=== PATIENT | male | born 1950 | race Caucasian/White ===

== ENCOUNTER 2024-03-09 13:18 | Inpatient (IN) | payer MEDICARE, BC, SELFPAY ==
[2024-03-07] VITALS (13 sets, daily range): BP systolic 102–189; BP diastolic 62–91; BMI 28.4
[2024-03-07 11:51] LABS: % Basophils 0.8 % (0-2); % Eosinophils 0.7 % (0-6); % Immature Granulocytes 0.5 % (0-0.5); % Lymphocytes 18.3 % (20.5-51.1); % Monocytes 7.3 % (1.7-9.3); % Neutrophils 72.4 % (42.2-75.2); Absolute Basophils 0.1 10^3/uL (0-0.2); Absolute Eosinophils 0.1 10^3/uL (0-0.7); Absolute Lymphocytes 1.4 10^3/uL (1.2-3.4); Absolute Monocytes 0.6 10^3/uL (0.1-0.6); Absolute Neutrophils 5.5 10^3/uL (1.4-6.5); Hematocrit 39.2 % (39.0-52.0); Hemoglobin 14.1 g/dL (13.0-18.0); Mean Corpuscular Hgb 31.4 pg (27.0-31.0); Mean Corpuscular Volume 87.3 fL (80.0-94.0); Mean Platelet Volume 9.8 fL (7.4-10.4); Nucleated Red Blood Cells % 0 % (-); Platelet Count 285 10^3/uL (130-400); Red Blood Cell Count 4.49 10^6/uL (4.70-6.10); Red Cell Dist. Width 12.1 % (11.5-14.5); White Blood Cell Count 7.6 10^3/uL (4.8-10.8)
[2024-03-07 12:08] LABS: ALT (SGPT) 19 U/L (0-50); AST (SGOT) 29 U/L (17-59); Albumin 4.3 g/dl (3.5-5.0); Alkaline Phosphatase 57 U/L (38-126); Blood Urea Nitrogen 12 mg/dl (9-20); Calcium 10.6 mg/dl (8.4-10.2); Carbon Dioxide 28 mmol/L (22-30); Chloride 92 mmol/L (98-107); Estimated Creatinine Clearance 60 ml/min; Glucose 93 mg/dl (70-99); Sodium 129 mmol/L (135-145); Total Protein 7.3 g/dl (6.3-8.2); eGFR > 60.00
[2024-03-07 12:16] LABS: Troponin I < 0.012 ng/ml
[2024-03-07 13:46] LABS: Urine Albumin Negative (Neg - Trace); Urine Bilirubin Negative (Negative); Urine Character Clear (Clear); Urine Color Yellow; Urine Glucose Negative (Negative); Urine Ketone 2+ (Negative); Urine Leukocyte Negative (Negative); Urine Nitrite Negative (Negative); Urine Occult Blood 3+ (Negative); Urine Urobilinogen Negative (Neg - 1+)
[2024-03-07 14:36] LABS: Urine Amorphous Seen; Urine Granular Cast 0-2 /LPF (0); Urine Mucus Few; Urine Squamous Cell 0-2 /LPF (Few)
[2024-03-07 14:37] LABS: Urine Epithelial Cast 0-2 /LPF; Urine White Cell 0-2 /HPF (0-5)
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
[2024-03-07] MEDS: SODIUM CHLORIDE 3% 250 IV (18:43)
--- NOTE | 2024-03-07 21:00 | EDRN ---
Report received, patient went to xray and came back, pulled up in bed and repositioned for comfort, call stephens in reach, no further complaints, will continue to monitor
[2024-03-07] MEDS: LOVENOX 40 MG SC (22:33)
--- NOTE | 2024-03-07 22:37 | EDRN ---
Patient ambulated to the restroom, was able to ambulate without difficulty and back in bed resting comfortably, call stephens in reach, showed how to use it again, patient asking about his room, informed him we probably wont get one until tomorrow,
lights turned down and patient resting comfortably.
[2024-03-07 22:43] LABS: Osmolality Urine 187 mOsm/kg (300-900)
[2024-03-07 23:03] LABS: Troponin I < 0.012 ng/ml
[2024-03-07 23:19] LABS: Urine Sodium 32 mmol/L (30-90)
[2024-03-08] VITALS (19 sets, daily range): BP systolic 66–184; BP diastolic 47–100; PULSE 68–81; BMI 27.3
[2024-03-08 05:20] LABS: Hematocrit 41.8 % (39.0-52.0); Hemoglobin 14.8 g/dL (13.0-18.0); Mean Corp Hgb Conc. 35.4 g/dL (33.0-37.0); Mean Corpuscular Hgb 31.9 pg (27.0-31.0); Mean Corpuscular Volume 90.1 fL (80.0-94.0); Mean Platelet Volume 9.9 fL (7.4-10.4); Platelet Count 264 10^3/uL (130-400); Red Blood Cell Count 4.64 10^6/uL (4.70-6.10); White Blood Cell Count 7.8 10^3/uL (4.8-10.8)
[2024-03-08 05:30] LABS: Blood Urea Nitrogen 10 mg/dl (9-20); Calcium 9.4 mg/dl (8.4-10.2); Carbon Dioxide 22 mmol/L (22-30); Chloride 101 mmol/L (98-107); Estimated Creatinine Clearance 86 ml/min; Glucose 86 mg/dl (70-99); Magnesium 2.1 mg/dl (1.6-2.3); Potassium 4.3 mmol/L (3.5-5.1); Sodium 133 mmol/L (135-145); eGFR > 60.00
[2024-03-08 05:40] LABS: Troponin I < 0.012 ng/ml
[2024-03-08 06:25] LABS: Vitamin B12 634 pg/ml (239-931)
[2024-03-08] MEDS: THERAGRAN 1 TABLET PO (09:57)
[2024-03-08] MEDS: PROTONIX 40 MG PO (09:57)
--- NOTE | 2024-03-08 10:36 | W.PN.NEPH.PH ---
Today's Communication / Plan
-
check cortisol
Assessment/Plan
-
Assessment:
Hyponatremia
Hypertension
Hypercalcemia
Reflux
Hypothyroidism
Unsteady gait
Plan:
no hypertonic IVF
check cortisol/FT4
TEDs
follow BMP
no lasix
continue FR
-
-
Date of Service: March 08, 2024
CC / HPI / ROS
-
Chief Complaint:
hyponatremia
History of Present Illness:
orthostatic severely
Na up to 133
TSH elevated
calcium normalized
Review of Systems:
no CP/SOB
Labs
-
Labs:
WBC 7.8 10^3/uL (4.8-10.8) 03/08/24 05:03
RBC 4.64 10^6/uL (4.70-6.10) L 03/08/24 05:03
Hgb 14.8 g/dL (13.0-18.0) 03/08/24 05:03
Hct 41.8 % (39.0-52.0) 03/08/24 05:03
Plt Count 264 10^3/uL (130-400) 03/08/24 05:03
Sodium 133 mmol/L (135-145) L 03/08/24 05:03
Potassium 4.3 mmol/L (3.5-5.1) 03/08/24 05:03
Chloride 101 mmol/L (98-107) 03/08/24 05:03
Carbon Dioxide 22 mmol/L (22-30) 03/08/24 05:03
BUN 10 mg/dl (9-20) 03/08/24 05:03
Creatinine 0.7 mg/dL (0.7-1.3) 03/08/24 05:03
eGFR > 60.00 03/08/24 05:03
Glucose 86 mg/dl (70-99) 03/08/24 05:03
Calcium 9.4 mg/dl (8.4-10.2) 03/08/24 05:03
Albumin 4.3 g/dl (3.5-5.0) 03/07/24 11:44
Physical Exam
-
Vital Signs:
Vital Signs
Temp Pulse Resp BP Pulse Ox
97.8 F 84 14 161/87 99
03/08/24 08:00 03/08/24 09:30 03/08/24 09:30 03/08/24 09:25 03/08/24 09:30
Cardiovascular:: Regular rate and rhythm
Respiratory:: Bilateral: Coarse
Lung Excursion:: Normal
Abdomen:: Nontender and Soft
Bowel Sounds:: Normal
Extremity Edema:: +1: Bilateral:
[2024-03-08 11:26] LABS: Free T4 1.45 ng/dl (0.78-2.19)
[2024-03-08 11:40] LABS: Cortisol, Random 14.2 ug/dl
[2024-03-08] MEDS: SENOKOT-S 1 TABLET PO (16:52)
--- NOTE | 2024-03-08 17:26 | W.PN.HOSP.TC ---
Today's Communication/Plan
-
Severe orthostatic hypotension
Fahad Stockings and Abdominal Binder when getting out of bed
May need increased blood pressure control/medicine for supine hypertension
PT/OT
Assessment / Plan
Assessment / Plan
Physical Exam
General: No Apparent Distress and Comfortable
HEENT: Normocephalic and Moist mucous membranes
Respiratory: Clear
Cardiac: S1/S2 and Regular Rhythm
GI: Soft, Non Tender and Normal Bowel Sounds
Musculoskeletal: No Cyanosis and No Edema
Skin: Warm and Dry
Neuro: Awake, Alert, AO x 3, No Motor Deficits and Nonfocal/grossly intact
Psych: Calm and Intact Judgment/Insight

MRI Brain (as per radiologist's report):
IMPRESSION:
1. No MRI evidence for acute infarct.
2. Mild to moderate white matter leukoaraiosis in the frontal and parietal lobes.
3. Mild diffuse cerebral and cerebellar volume loss.
4. Hypoplastic right intracranial vertebral artery.
5. Small multilevel disc herniations in the cervical spine causing mild spinal cord compression and central canal stenosis.

Assessment/Plan
Presentation with a 3-day history of ataxia, dizziness
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
Significant Orthostatic Hypotension
-CT Head with no acute changes
-MRI brain with no acute stroke
-Orthostatic vital signs
-Echocardiogram noted and unremarkable
-Spoke with neurology, recommendations appreciated: treat orthostatic hypotension for now, consult if needed
-Consulted nephrology as well given patient's hyponatremia (which is new for him, per patient's )
-Monitor on telemetry
-Cortisol noted
-TSH above 10, increased Levothyroxine for 137 mcg daily
-TEDs
-Abdominal Binder
Hyponatremia
-Sodium 129 on admission
-PO fluid restriction 48 ounces daily
-Consulted nephrology, recommendations appreciated
-Received 3%
-Sodium improved
Hypothyroidism
-TSH above 10, increased Levothyroxine for 137 mcg daily
GERD
-Continue home Nexium or equivalent
Anxiety
-Stable
DVT PPx: Lovenox
Code Status: Full Code
Anticipated Discharge: 24 - 48 hours
Subjective/Interval History
-
Date of Service: March 08, 2024
Patient was seen and examined. He denied any new symptoms or any new complaints.
Objective Data
-
Labs:
Laboratory Results
03/08/24 03/08/24 03/08/24
05:03 05:03 05:03
WBC 7.8
Hgb 14.8
Hct 41.8
Plt Count 264
Sodium Cancelled 133 L
Potassium Cancelled 4.3
Chloride Cancelled
Carbon Dioxide
BUN
Creatinine
Glucose
Calcium
03/08/24 03/08/24 03/08/24
05:03 05:03 05:03
WBC
Hgb
Hct
Plt Count
Sodium
Potassium
Chloride 101
Carbon Dioxide Cancelled 22
BUN Cancelled 10
Creatinine Cancelled
Glucose
Calcium
03/08/24 03/08/24 03/08/24
05:03 05:03 05:03
WBC
Hgb
Hct
Plt Count
Sodium
Potassium
Chloride
Carbon Dioxide
BUN
Creatinine 0.7
Glucose Cancelled 86
Calcium Cancelled 9.4
Vital Signs:
Vital Signs
Temp Pulse Resp BP Pulse Ox
97.9 F 74 20 172/95 98
03/08/24 16:15 03/08/24 17:10 03/08/24 16:15 03/08/24 17:10 03/08/24 16:15
I&O
03/07/24 03/08/24 03/09/24
06:59 06:59 06:59
Intake Total 250 / 250
Output Total 500 / 500 250 / 250
Balance -250 / -250 -250 / -250
--- NOTE | 2024-03-08 17:30 | PTCARENOTE ---
Pt arrived to 412-1 at 1615 from the ED. Pt AAOx3, forgetful and CHEESH-NA- no hearing aids with pt. Pt denies any dizziness. BP elevated at time of arrival to floor at 184/100. Rechecked BP at 1710, BP 172/95. Pt remains asymptomatic. Made "Eric"Lakeshia aware of elevated BP. No change in meds at this time. See shift assessment for further detail. Oriented pt and his to , reporting concerns, plan of care, fall risk, medications etc- both verbalized understanding. Bed alarm in place
for pt's safety as he is forgetful.
[2024-03-08] MEDS: LOVENOX 40 MG SC (18:20)
[2024-03-09] VITALS (9 sets, daily range): BP systolic 65–168; BP diastolic 38–102; PULSE 64–90; O2SAT 99
[2024-03-09] MEDS: SYNTHROID 137 MCG PO (05:39)
[2024-03-09] MEDS: THERAGRAN 1 TABLET PO (07:41)
[2024-03-09] MEDS: PROTONIX 40 MG PO (07:41)
[2024-03-09 08:02] LABS: Hematocrit 39.8 % (39.0-52.0); Hemoglobin 14.1 g/dL (13.0-18.0); Mean Corp Hgb Conc. 35.4 g/dL (33.0-37.0); Mean Corpuscular Hgb 31.6 pg (27.0-31.0); Mean Corpuscular Volume 89.2 fL (80.0-94.0); Platelet Count 258 10^3/uL (130-400); Red Blood Cell Count 4.46 10^6/uL (4.70-6.10); Red Cell Dist. Width 12.3 % (11.5-14.5); White Blood Cell Count 8.6 10^3/uL (4.8-10.8)
[2024-03-09 08:36] LABS: Blood Urea Nitrogen 11 mg/dl (9-20); Calcium 9.5 mg/dl (8.4-10.2); Carbon Dioxide 26 mmol/L (22-30); Chloride 99 mmol/L (98-107); Estimated Creatinine Clearance 67 ml/min; Glucose 91 mg/dl (70-99); Magnesium 2.3 mg/dl (1.6-2.3); Potassium 4.4 mmol/L (3.5-5.1); Sodium 133 mmol/L (135-145); eGFR > 60.00
--- NOTE | 2024-03-09 13:55 | CM ---
Patient seen bedside with , initial assessment completed. Patient somewhat hard of hearing. Patient resides with in a two story home, 15 steps to enter. Patient denies DME, VN, or SNF history. Patient confirms PCP Nader Bello, pharmacy
[facility], confirms prescription coverage. Patient denies food insecurities. Patient very anxious about PT recommendations, would like to return home with VN. POMPA status reviewed, refused to sign, placed in chart. Patient inquiring if he will be
switched to inpatient status, TT sent to CM. Patients inquiring about list of local PCP for herself, CM will provide. CM will watch for PT/OT evaluations for recommendations upon discharge.
Plan; will depend on PT/OT evals, patient goal is to return home with VN.
--- NOTE | 2024-03-09 15:42 | W.PN.NEPH.PH ---
Today's Communication / Plan
-
- continue fluid restriction
- nephrology to sign off
Assessment/Plan
-
Assessment:
Hyponatremia
Hypertension
Hypercalcemia
Reflux
Hypothyroidism
Unsteady gait
Plan:
no hypertonic IVF
cortisol and free T4 okay
TEDs stockings
Na now normalized to 133
no lasix, this can worsen orthostatics
continue FR
orthostatic hypotension to be managed per primary
nephrology will sign off
-
-
Date of Service: March 09, 2024
CC / HPI / ROS
-
Chief Complaint:
hyponatremia
History of Present Illness:
orthostatic severely
Na up to 133
TSH elevated
calcium normalized
Review of Systems:
no CP/SOB
Labs
-
Labs:
WBC 8.6 10^3/uL (4.8-10.8) 03/09/24 07:32
RBC 4.46 10^6/uL (4.70-6.10) L 03/09/24 07:32
Hgb 14.1 g/dL (13.0-18.0) 03/09/24 07:32
Hct 39.8 % (39.0-52.0) 03/09/24 07:32
Plt Count 258 10^3/uL (130-400) 03/09/24 07:32
Sodium 133 mmol/L (135-145) L 03/09/24 07:32
Potassium 4.4 mmol/L (3.5-5.1) 03/09/24 07:32
Chloride 99 mmol/L (98-107) 03/09/24 07:32
Carbon Dioxide 26 mmol/L (22-30) 03/09/24 07:32
BUN 11 mg/dl (9-20) 03/09/24 07:32
Creatinine 0.9 mg/dL (0.7-1.3) 03/09/24 07:32
eGFR > 60.00 03/09/24 07:32
Glucose 91 mg/dl (70-99) 03/09/24 07:32
Calcium 9.5 mg/dl (8.4-10.2) 03/09/24 07:32
Albumin 4.3 g/dl (3.5-5.0) 03/07/24 11:44
Physical Exam
-
Vital Signs:
Vital Signs
Temp Pulse Resp BP Pulse Ox
99.2 F 78 18 168/87 98
03/09/24 12:10 03/09/24 12:10 03/09/24 12:10 03/09/24 12:10 03/09/24 12:10
Cardiovascular:: Regular rate and rhythm
Respiratory:: Bilateral: Coarse
Lung Excursion:: Normal
Abdomen:: Nontender and Soft
Bowel Sounds:: Normal
Extremity Edema:: None: Bilateral:
Farris Catheter: No
[2024-03-09] MEDS: LOVENOX 40 MG SC (17:37)
--- NOTE | 2024-03-09 17:59 | W.PN.HOSP.TC ---
Today's Communication/Plan
-
Have the patient not recline flat and instead have a 20� angle when sleeping to avoid supine hypertension -- will try this and see if blood pressure on lying down improves so can trial Midodrine
Assessment / Plan
Assessment / Plan
Physical Exam
General: No Apparent Distress and Comfortable
HEENT: Normocephalic and Moist mucous membranes
Respiratory: Clear
Cardiac: S1/S2 and Regular Rhythm
GI: Soft, Non Tender and Normal Bowel Sounds
Musculoskeletal: No Cyanosis and No Edema
Skin: Warm and Dry
Neuro: Awake, Alert, AO x 3, No Motor Deficits and Nonfocal/grossly intact
Psych: Calm and Intact Judgment/Insight

MRI Brain (as per radiologist's report):
IMPRESSION:
1. No MRI evidence for acute infarct.
2. Mild to moderate white matter leukoaraiosis in the frontal and parietal lobes.
3. Mild diffuse cerebral and cerebellar volume loss.
4. Hypoplastic right intracranial vertebral artery.
5. Small multilevel disc herniations in the cervical spine causing mild spinal cord compression and central canal stenosis.

Assessment/Plan
Presentation with a 3-day history of ataxia, dizziness
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
Significant Orthostatic Hypotension
Supine Hypertension
-CT Head with no acute changes
-MRI brain with no acute stroke
-Orthostatic vital signs showed severe orthostatic hypotension
-Echocardiogram noted and unremarkable
-Spoke with neurology, recommendations appreciated: treat orthostatic hypotension for now, consult if needed
-Consulted nephrology as well given patient's hyponatremia (which is new for him, per patient's )
-Continue to monitor on telemetry
-Cortisol noted
-TSH above 10, increased Levothyroxine for 137 mcg daily
-TEDs
-Abdominal Binder
-Have the patient not recline flat and instead have a 20� angle when sleeping to avoid supine hypertension -- will try this and see if blood pressure on lying down improves so can trial Midodrine
Hyponatremia
-Sodium 129 on admission
-PO fluid restriction 48 ounces daily
-Consulted nephrology, recommendations appreciated
-Received 3%
-Sodium improved
Hypothyroidism
-TSH above 10, increased Levothyroxine for 137 mcg daily
GERD
-Continue home Nexium or equivalent
Anxiety
-Stable
DVT Prophylaxis: Lovenox
Code Status: Full Code
Anticipated Discharge: 24 - 48 hours
Subjective/Interval History
-
Date of Service: March 09, 2024
Patient was seen and examined. He denied any new symptoms or complaints.
Objective Data
-
Labs:
Laboratory Results
03/09/24
07:32
WBC 8.6
Hgb 14.1
Hct 39.8
Plt Count 258
Sodium 133 L
Potassium 4.4
Chloride 99
Carbon Dioxide 26
BUN 11
Creatinine 0.9
Glucose 91
Calcium 9.5
Vital Signs:
Vital Signs
Temp Pulse Resp BP Pulse Ox
98.8 F 72 18 148/82 98
03/09/24 15:40 03/09/24 15:40 03/09/24 15:40 03/09/24 15:40 03/09/24 15:40
I&O
03/08/24 03/09/24 03/10/24
06:59 06:59 06:59
Intake Total 250 / 250 480 / 480
Output Total 500 / 500 350 / 350
Balance -250 / -250 130 / 130
[2024-03-10] VITALS (8 sets, daily range): BP systolic 76–176; BP diastolic 48–88; PULSE 71–81
[2024-03-10] MEDS: SYNTHROID 137 MCG PO (05:07)
[2024-03-10 08:08] LABS: Hemoglobin 14.3 g/dL (13.0-18.0); Mean Corp Hgb Conc. 34.9 g/dL (33.0-37.0); Mean Corpuscular Hgb 31.8 pg (27.0-31.0); Mean Corpuscular Volume 91.1 fL (80.0-94.0); Platelet Count 257 10^3/uL (130-400); Red Cell Dist. Width 12.2 % (11.5-14.5); White Blood Cell Count 8.6 10^3/uL (4.8-10.8)
[2024-03-10 08:23] LABS: Blood Urea Nitrogen 12 mg/dl (9-20); Calcium 9.8 mg/dl (8.4-10.2); Carbon Dioxide 26 mmol/L (22-30); Chloride 97 mmol/L (98-107); Estimated Creatinine Clearance 75 ml/min; Glucose 94 mg/dl (70-99); Potassium 4.4 mmol/L (3.5-5.1); Sodium 133 mmol/L (135-145); eGFR > 60.00
[2024-03-10] MEDS: PROTONIX 40 MG PO (09:44)
[2024-03-10] MEDS: THERAGRAN 1 TABLET PO (09:44)
--- NOTE | 2024-03-10 12:29 | CM ---
Patient seen bedside with , discussed PT recommendations of acute rehab vs [facility]. Patient and would like to return home with [facility]N, TT sent to [facility] with referral. Patient is not agreeable to rehab at this time. CM will continue to follow for
all discharge planning needs.
Plan; home with [facility] pending acceptance.
--- NOTE | 2024-03-10 14:51 | VNURNOTE ---
Home Health Liaison met with patient and Terri at 1300 to discuss [facility] nurse/therapy, visits, schedule and homebound status. Patient is agreeable and understands that visits at home will be 2-3 x per week to assess and teach medical management.
[facility] contact information provided. Patient is aware that [facility] will contact them for start of care in 1-2 days after discharge from .
[facility] referral completed in [facility].
--- NOTE | 2024-03-10 15:46 | W.PN.HOSP.TC ---
Today's Communication/Plan
-
Patient still very orthostatic and still with significant supine hypertension
Consulted cardiology, appreciate recommendations
Assessment / Plan
Assessment / Plan
Physical Exam
General: No Apparent Distress and Comfortable
HEENT: Normocephalic and Moist mucous membranes
Respiratory: Clear
Cardiac: S1/S2 and Regular Rhythm
GI: Soft, Non Tender and Normal Bowel Sounds
Musculoskeletal: No Cyanosis and No Edema
Skin: Warm and Dry
Neuro: Awake, Alert, AO x 3, No Motor Deficits and Nonfocal/grossly intact
Psych: Calm and Intact Judgment/Insight

MRI Brain (as per radiologist's report):
IMPRESSION:
1. No MRI evidence for acute infarct.
2. Mild to moderate white matter leukoaraiosis in the frontal and parietal lobes.
3. Mild diffuse cerebral and cerebellar volume loss.
4. Hypoplastic right intracranial vertebral artery.
5. Small multilevel disc herniations in the cervical spine causing mild spinal cord compression and central canal stenosis.

Assessment/Plan
Presentation with a 3-day history of ataxia, dizziness
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
Significant Orthostatic Hypotension
Supine Hypertension
-CT Head with no acute changes
-MRI brain with no acute stroke
-Orthostatic vital signs continues to show severe orthostatic hypotension
-Echocardiogram noted and unremarkable
-Spoke with neurology, recommendations appreciated: treat orthostatic hypotension for now, consult if needed --> otherwise outpatient follow-up
-Consulted nephrology as well given patient's hyponatremia (which is new for him, per patient's )
-Continue to monitor on telemetry
-Cortisol noted
-TSH above 10, increased Levothyroxine to 125 mcg daily (overall increase from home dose)
-TEDs
-Abdominal Binder
-Had the patient not recline flat and instead have a 20� angle when sleeping to avoid supine hypertension -- however still with high blood pressures lying down
-Consulted cardiology, recommendations appreciated
Hyponatremia
-Sodium 129 on admission
-PO fluid restriction 48 ounces daily
-Consulted nephrology, recommendations appreciated
-Received 3%
-Sodium improved
Hypothyroidism
-TSH above 10, increased Levothyroxine to 125 mcg daily
GERD
-Continue home Nexium or equivalent
Anxiety
-Stable
DVT Prophylaxis: Lovenox
Code Status: Full Code
Anticipated Discharge: > 48 hours
Subjective/Interval History
-
Date of Service: March 10, 2024
Patient was seen and examined. He denied any new symptoms, still dizzy when getting up.
Objective Data
-
Labs:
Laboratory Results
03/10/24
07:25
WBC 8.6
Hgb 14.3
Hct 41.0
Plt Count 257
Sodium 133 L
Potassium 4.4
Chloride 97 L
Carbon Dioxide 26
BUN 12
Creatinine 0.8
Glucose 94
Calcium 9.8
Vital Signs:
Vital Signs
Temp Pulse Resp BP Pulse Ox
97.9 F 74 16 109/65 97
03/10/24 15:27 03/10/24 15:27 03/10/24 15:27 03/10/24 15:27 03/10/24 15:27
I&O
03/09/24 03/10/24 03/11/24
06:59 06:59 06:59
Intake Total 480 / 480 1260 / 1260
Output Total 350 / 350
Balance 130 / 130 1260 / 1260
--- NOTE | 2024-03-10 16:02 | W.PN.CD ---
Today's Communication / Plan
-
Impression / Plan
-
Impression: 73M admitted with ataxia. Discovered with severe orthostatic hypotension. It seems he has long history of OH and had syncope after being in hot shower and bending over/standing up quickly.
Plan:
Orthostatic hypotension - Mr. Rucker has dealt with OH for some time and describes multiple things he does to help (sit down, hydrated, etc)
- Review of records shows: cardiology visit/evaluation in 2019 for same and patient improved with knee high stockings/hydration but did not want to use fludrocortisone or exercise based lifestyle modification.
- Cardiac testing here is benign (Echo/tele)
- non neurogenic orthostatic hypotension is often reversible and due to volume depletion (seems unlikely at this point), medication (no offending meds) or severe cardiomyopathy/HF (unlikely)
- neurogenic orthostasis is due to autonomic dysfunction
- recommend lifestyle modification including:
- increase salt & water, elevate head of bed
- physical countermeasures (standing up slowly, leg crossing, etc)
- avoiding strenuous activity/dehydration/Valsalva.
- Also, abdominal binder and waist high compression stockings
- Medications
- previously declined fludrocortisone -> revisit
- midodrine during the day seems most reasonable
- Neurology evaluation for neurodegenerative disorders or neuropathy
Dispo - no cardiac contraindication to discharge
Physical Exam
Vital Signs/Labs
Vital Signs
Temp Pulse Resp BP Pulse Ox
36.6 C 74 16 109/65 97
03/10/24 15:27 03/10/24 15:27 03/10/24 15:27 03/10/24 15:27 03/10/24 15:27
03/09/24 03/10/24 03/11/24
06:59 06:59 06:59
Actual Weight 168 lb 12.8 oz
03/10/24 07:25
03/10/24 07:25
Magnesium 2.3 mg/dl (1.6-2.3) 03/09/24 07:32
TSH 14.80 uIU/ml (0.47-4.68) H 03/08/24 05:03
Free T4 1.45 ng/dl (0.78-2.19) 03/08/24 05:03
LAB Results
03/07/24 03/08/24 03/08/24
22:16 05:03 09:17
Troponin I < 0.012 < 0.012 Cancelled
03/08/24
15:17
Troponin I Cancelled
Data Reviewed
-
Date of Service: March 10, 2024
[2024-03-10] MEDS: LOVENOX 40 MG SC (18:32)
[2024-03-11 03:35] VITALS: BP 148/83
[2024-03-11] MEDS: SYNTHROID 125 MCG PO (05:28)
[2024-03-11 07:30] LABS: Hemoglobin 13.6 g/dL (13.0-18.0); Mean Corp Hgb Conc. 34.9 g/dL (33.0-37.0); Mean Corpuscular Hgb 31.3 pg (27.0-31.0); Mean Corpuscular Volume 89.7 fL (80.0-94.0); Mean Platelet Volume 9.8 fL (7.4-10.4); Platelet Count 229 10^3/uL (130-400); Red Blood Cell Count 4.35 10^6/uL (4.70-6.10); Red Cell Dist. Width 11.9 % (11.5-14.5); White Blood Cell Count 7.2 10^3/uL (4.8-10.8)
[2024-03-11 08:05] LABS: Blood Urea Nitrogen 12 mg/dl (9-20); Calcium 9.2 mg/dl (8.4-10.2); Carbon Dioxide 25 mmol/L (22-30); Chloride 98 mmol/L (98-107); Estimated Creatinine Clearance 86 ml/min; Glucose 95 mg/dl (70-99); Potassium 3.9 mmol/L (3.5-5.1); Sodium 130 mmol/L (135-145); eGFR > 60.00
[2024-03-11 08:45] VITALS: BP 143/70
[2024-03-11] MEDS: THERAGRAN 1 TABLET PO (08:59)
[2024-03-11] MEDS: PROTONIX 40 MG PO (08:59)
--- NOTE | 2024-03-11 11:18 | W.PN.HOSP.TC ---
Today's Communication/Plan
-
Discharge today
Assessment / Plan
Assessment / Plan
Physical Exam
General: No Apparent Distress and Comfortable
HEENT: Normocephalic and Moist mucous membranes
Respiratory: Clear
Cardiac: S1/S2 and Regular Rhythm
GI: Soft, Non Tender and Normal Bowel Sounds
Musculoskeletal: No Cyanosis and No Edema
Skin: Warm and Dry
Neuro: Awake, Alert, AO x 3, No Motor Deficits and Nonfocal/grossly intact
Psych: Calm and Intact Judgment/Insight

MRI Brain (as per radiologist's report):
IMPRESSION:
1. No MRI evidence for acute infarct.
2. Mild to moderate white matter leukoaraiosis in the frontal and parietal lobes.
3. Mild diffuse cerebral and cerebellar volume loss.
4. Hypoplastic right intracranial vertebral artery.
5. Small multilevel disc herniations in the cervical spine causing mild spinal cord compression and central canal stenosis.

Assessment/Plan
Presentation with a 3-day history of ataxia, dizziness
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
Significant Orthostatic Hypotension
History of Orthostatic Hypotension
Supine Hypertension
-CT Head with no acute changes
-MRI brain with no acute stroke
-Orthostatic vital signs continues to show severe orthostatic hypotension
-Echocardiogram noted and unremarkable
-Spoke with neurology, recommendations appreciated: treat orthostatic hypotension for now, consult if needed --> otherwise outpatient follow-up
-Consulted nephrology as well given patient's hyponatremia (which is new for him, per patient's )
-Continue to monitor on telemetry
-Cortisol noted
-TSH above 10, increased Levothyroxine to 125 mcg daily (overall increase from home dose)
-TEDs
-Abdominal Binder
-Consulted cardiology, recommendations appreciated
-Lifestyle changes: increase salt & water, elevate head of bed, physical countermeasures (standing up slowly, leg crossing, etc), avoid strenuous activity/dehydration/Valsalva.
-Can consider daytime Midodrine and Fludrocortisone
-Follow-up with neurology outpatient evaluation for neurodegenerative disorders or neuropathy/possible neurogenic orthostasis
Hyponatremia
-Sodium 129 on admission
-PO fluid restriction 48 ounces daily
-Consulted nephrology, recommendations appreciated
-Received 3%
-Sodium improved
Hypothyroidism
-TSH above 10, increased Levothyroxine to 125 mcg daily
GERD
-Continue home Nexium or equivalent
Anxiety
-Stable
DVT Prophylaxis: Lovenox
Code Status: Full Code
More than 30 minutes spent in discharge including
Final examination of the patient
Summarizing hospital stay
Instructions for continuing care to all relevant caregivers
Preparation of discharge records, prescriptions, and referral forms
Total time spent (in minutes): 37
Anticipated Discharge: Today
Subjective/Interval History
-
Date of Service: March 11, 2024
Patient was seen and examined. He denied any new symptoms or complaints, he said he would really like to go home today. Nurse reported that he was able to get up and walk in the hallway.
Objective Data
-
Labs:
Laboratory Results
03/11/24
07:10
WBC 7.2
Hgb 13.6
Hct 39.0
Plt Count 229
Sodium 130 L
Potassium 3.9
Chloride 98
Carbon Dioxide 25
BUN 12
Creatinine 0.7
Glucose 95
Calcium 9.2
Vital Signs:
Vital Signs
Temp Pulse Resp BP Pulse Ox
98.3 F 76 18 143/70 95
03/11/24 08:45 03/11/24 08:45 03/11/24 08:45 03/11/24 08:45 03/11/24 08:45
I&O
03/10/24 03/11/24 03/12/24
06:59 06:59 06:59
Intake Total 1260 / 1260 1080 / 1080
Output Total 440 / 440
Balance 1260 / 1260 640 / 640
--- NOTE | 2024-03-11 11:54 | CM ---
Patient seen bedside with , discussed plan for discharge today. CM updated [facility] on patients discharge. IMM reviewed, signed, placed in patients chart. CM will continue to follow for discharge planning needs.
Plan; home with [facility] and .
[2024-03-11 11:59] VITALS: BP 116/70
--- NOTE | 2024-03-11 15:03 | PTCARENOTE ---
Peripheral IV removed. Telemetry removed. at bedside. Awaiting discharge order.
[2024-03-11 15:53] VITALS: BP 193/93
--- NOTE | 2024-03-11 16:10 | W.DS.TRANS ---
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
-
Discharge Instructions:
Discharge Diagnosis/Procedures Hypoplastic right intracranial vertebral artery
Mild spinal cord compression and central canal
stenosis
Presentation with a 3-day history of ataxia,
dizziness
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
Significant Orthostatic Hypotension
History of Orthostatic Hypotension
Supine Hypertension
Hyponatremia
Hypothyroidism
Gastroesophageal Reflux Disease
Anxiety
Diet Restrict fluids to 48 oz
Activity As tolerated
Driving Restrictions No driving
Other Services [facility]
Instructions: Orthostatic hypotension
Preventing falls in adults
How to Put On and Take Off Compression Stockings
Using an abdominal binder
Stand-Alone Forms:
Changes to Home Medications: Yes
Discharge Medications:
DC Medications w/original date entered in [employer]
esomeprazole magnesium 40 mg capsule,delayed release (Nexium) 40 mg PO DAILY Gastrointestinal Issue 06/29/14
xszvvpeu-zmr-lxwkj acid 0.4 mg-lycopene 300 mcg-lutein 250 mcg tablet (Centrum Silver) 1 ea PO DAILY Supplement 12/13/18
acetaminophen 325 mg tablet (Tylenol) 650 mg PO Q4HPRN PRN mild pain 03/07/24
aspirin 325 mg tablet 325 mg PO DAILYPRN PRN mild pain 03/07/24
naproxen sodium 220 mg tablet (Aleve) 220 mg PO BIDPRN PRN mild pain 03/07/24
levothyroxine 125 mcg tablet 125 mcg PO DAILY @ 0600 #60 tabs 03/11/24
sennosides 8.6 mg-docusate sodium 50 mg tablet (Stool Softener-Stimulant Laxative) 1 tab PO BIDPRN PRN constipation #60 tabs 03/11/24
Home Medication Changes
Your Levothyroxine dose was increased from 112 mcg daily to 125 mcg daily based on your TSH of 14.80 during the hospitalization.
Stop your old Levothyroxine 112 mcg daily.
Sennosides-Docusate is a new medication.
Naproxen is on hold until outpatient follow-up.
Pending Results: No
Total time spent discharging patient (in min): 37
--- NOTE | 2024-03-11 17:09 | PTCARENOTE ---
Discharge instructions reviewed with patient and . Both verbalize understanding of teaching. Questions answered. Left via wheelchair with staff escort.
== END 2024-03-11 17:26 | disposition home health service (06) | DRG 57 ==
LOC: 4 EAST ACU 13:18
PROVIDERS: ADMITTING PHYSICIAN Hospitalist; CONSULT PHYSICIAN Internal Medicine Cardiovascular Disease; CONSULT PHYSICIAN Specialist; EMERGENCY PHYSICIAN Emergency Medicine; FAMILY PHYSICIAN Family Medicine
DX: G90.3 Multi-system degeneration of the autonomic nervous system (principal); E87.1 Hypo-osmolality and hyponatremia; G95.29 Other cord compression; R27.0 Ataxia, unspecified; E83.52 Hypercalcemia; E03.9 Hypothyroidism, unspecified
CPT/HCPCS: 70450; 70551; 71046; 80048; 80053; 81003; 81015; 82533; 82570; 82607; 83735; 83935; 84300; 84439; 84443; 84484; 85025; 85027; 93005; 93306; 97110; 97163; 97167; 97530; 99285